=== PATIENT | male | born 1945 | race Caucasian/White ===

== ENCOUNTER 2020-08-20 13:21 | Emergency (ER) | payer MEDICARE ==
[2020-08-20 13:43] VITALS: RESP 18
[2020-08-20] MEDS ORDERED: SODIUM CHLORIDE 0.9% 500 ML 500 ML IV ONE (14:40)
[2020-08-20 15:33] LABS: Basophils # (A) 0.1 k/uL (0-0.2); Basophils % (A) 1 %; Eosinophils # (A) 0.6 k/uL (0-0.7); Eosinophils % (A) 5 %; HCT 46.6 % (39.0-53.0); HGB 15.7 gm/dL (13.0-17.5); Lymphocytes # (A) 2.1 k/uL (1.0-4.8); Lymphocytes % (A) 19 %; MCH 30.4 pg (25.0-35.0); MCHC 33.8 g/dL (31.0-37.0); MCV 89.8 fL (80.0-100.0); Mean Platelet Volume 9.2; Monocytes # (A) 0.7 k/uL (0-1.0); Monocytes % (A) 7 %; Neutrophils % (A) 65 %; Platelet Count 434 k/uL (150-450); RBC 5.18 m/uL (4.30-5.90); RDW 13.7 % (11.5-15.5); WBC 10.8 k/uL (3.8-10.6)
[2020-08-20 15:43] LABS: African American GFR (CKD) >90 (>60 ml/min/1.73 sqM); Anion Gap 10 mmol/L; Blood Urea Nitrogen 17 mg/dL (9-20); Carbon Dioxide 23 mmol/L (22-30); Chloride 105 mmol/L (98-107); Glucose 118 mg/dL (74-99); Potassium 4.7 mmol/L (3.5-5.1); Sodium 138 mmol/L (137-145)
[2020-08-20 15:44] LABS: ALT 18 U/L (4-49); AST 22 U/L (17-59); Albumin 4.4 g/dL (3.5-5.0); Alkaline Phosphatase 91 U/L (38-126); Calcium 9.8 mg/dL (8.4-10.2); Non-African American GFR(CKD) 83 (>60 ml/min/1.73 sqM); Total Protein 7.4 g/dL (6.3-8.2)
[2020-08-20 15:47] LABS: INR 0.9 (<1.2); Partial Thromboplastin Time 26.1 sec (22.0-30.0); Prothrombin Time 9.6 sec (9.0-12.0)
--- NOTE | 2020-08-20 16:44 | CT ---
EXAMINATION TYPE: CT brain wo con DATE OF EXAM: 08/20/2020 COMPARISON: None HISTORY: visual disturbance CT DLP: 1579.4 mGycm Automated exposure control for dose reduction was used. There is cerebral cortical atrophy. There is no mass effect nor midline shift. There is no sign of in tracranial hemorrhage. Calvarium is intact. Skull base is intact. There is mucosal thickening in the ethmoid sinuses. IMPRESSION: Cerebral atrophy. No acute intracranial abnormality. Ethmoid sinusitis.
--- NOTE | 2020-08-20 17:31 | CT ---
EXAMINATION TYPE: CT angio head neck DATE OF EXAM: 08/20/2020 COMPARISON: None HISTORY: visual distubance CT DLP: 1579.4 mGycm Automated exposure control for dose reduction was used. CONTRAST: Performed with IV Contrast, patient injected with 65 mL of Isovue 370. There are 3-D post processed images. There is normal branching pattern of the great vessels on the aortic arch. There is bilateral arteria l flow in the subclavian arteries. There is arterial flow in the left vertebral artery. I see no flow in the right vertebral artery. There is arterial flow in both common carotid arteries. There is evidence of complete occlusion of th e right internal carotid artery at its origin. There is patency of the left internal carotid artery. There is plaque formation at the left carotid artery bifurcation. There is significant plaque formati on right carotid artery bifurcation. I see no carotid dissection. There is arterial flow in the anter ior middle and posterior cerebral arteries. There is arterial flow in the basilar artery which appear s to fill only from the left side. There is some retrograde flow in the right distal vertebral artery . There is no evidence of intracranial aneurysm or neovascularity. The right anterior cerebral artery a nd right middle cerebral artery appear to fill through the anterior communicating artery and the righ t posterior communicating artery. I see no evidence of intracranial arterial stenosis. There is abdullahi l contrast opacification of the venous sinuses. There is mucosal thickening in the ethmoid sinuses. IMPRESSION: Complete occlusion right internal carotid artery at its origin. 

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
[2020-08-20 19:00] VITALS: BP 184/108; PULSE 67; TEMP 97.6
== END 2020-08-20 19:00 | disposition home or self-care (01) ==
LOC: EC 13:21
DX: I65.23 Occlusion and stenosis of bilateral carotid arteries (principal); I65.01 Occlusion and stenosis of right vertebral artery; I10 Essential (primary) hypertension; E11.9 Type 2 diabetes mellitus without complications; E78.5 Hyperlipidemia, unspecified; Z79.4 Long term (current) use of insulin; Z79.899 Other long term (current) drug therapy; Z87.891 Personal history of nicotine dependence
CPT/HCPCS: 36415; 80053; 85025; 85610; 85730; 70496; 70450; 70498; 99284; 96360; Q9967

== ENCOUNTER → 2021-03-19 | Outpatient (CLI) | payer MEDICARE ==
[2021-03-19 11:53] LABS: African American GFR (CKD) >90 (>60 ml/min/1.73 sqM); Blood Urea Nitrogen 22 mg/dL (9-20); Non-African American GFR(CKD) 79 (>60 ml/min/1.73 sqM)
--- NOTE | 2021-03-19 14:25 | CT ---
EXAMINATION TYPE: CT angio neck DATE OF EXAM: 03/19/2021 HISTORY: Carotid stenosis, history of throat cancer. COMPARISON: CTA head neck August 20, 2020 CT DLP: 328.7 mGycm. Automated Exposure Control for Dose Reduction was Utilized. TECHNIQUE: CTA scan of the neck is performed with IV Contrast, patient injected with 65 mL of Isovue 370, axial images are obtained, coronal and sagittal reformatted images are reviewed. . 3D reconstru cted images are created on an independent workstation and reviewed. FINDINGS: Carotid/Vascular Structures: There is bovine type arch redemonstrated. [id number] peripheral pl aque in the left subclavian artery redemonstrated without significant stenosis. Normal origin right c ommon carotid artery from right brachiocephalic artery. Mild to moderate noncalcified plaque in the d istal left common carotid artery along anterior medial aspect redemonstrated. There is bulging at the bifurcation with mild to moderate calcified plaque extending into left internal carotid artery but n o significant stenosis. No significant change from prior. Patent external carotid artery without sign ificant stenosis. There is moderate to severe noncalcified plaque greatest anteriorly in curvilinear fashion mid to dis hany right common carotid artery redemonstrated. There is bulge at the right carotid bulb with complet e occlusion of the right internal carotid artery at its origin redemonstrated. There is near complete occlusion of the right external carotid artery shortly after its origin on current study more promin ent in appearance versus prior. Some intracranial flow at level of [place] is identified. Persistent complete occlusion of the right vertebral artery with some visualization distally likely f rom retrograde flow. Stable patent left vertebral artery filling the basilar artery. Other: Moderate mucosal thickening bilateral maxillary sinuses left greater than right redemonstrated . Moderate mucosal thickening and opacification of bilateral ethmoid sinuses is identified. Subcentimeter left-sided thyroid nodules redemonstrated. Mild to moderate emphysematous change of visualized upper lungs. IMPRESSION: Persistent complete occlusion of the right internal carotid artery. Persistent occluded r ight vertebral artery. Worsening significant stenosis right external carotid artery. No significant s tenosis left common or internal carotid artery.
== END | disposition home or self-care (01) ==
LOC: RADCTMAIN 11:12
PROVIDERS: ATTEND Surgery
DX: I65.21 Occlusion and stenosis of right carotid artery (principal); I65.01 Occlusion and stenosis of right vertebral artery; Z85.29 Personal history of malignant neoplasm of other respiratory and intrathoracic organs
CPT/HCPCS: 82565; 84520; 70498; 36415; Q9967

== ENCOUNTER → 2021-09-07 | Outpatient (CLI) | payer MEDICARE ==
[2021-09-07 11:58] LABS: Potassium 5.4 mmol/L (3.5-5.1)
[2021-09-07 12:42] LABS: Anisocytosis Slight; HCT 41.9 % (39.0-53.0); HGB 13.3 gm/dL (13.0-17.5); Hypochromasia Slight; MCH 24.8 pg (25.0-35.0); MCHC 31.7 g/dL (31.0-37.0); MCV 78.3 fL (80.0-100.0); Mean Platelet Volume 8.5; Microcytosis Slight; Platelet Count 448 k/uL (150-450); RBC 5.35 m/uL (4.30-5.90); RDW 16.6 % (11.5-15.5); WBC 10.7 k/uL (3.8-10.6)
[2021-09-07 14:31] LABS: Basophils # (M) 0.11 k/uL (0-0.2); Eosinophils # (M) 1.07 k/uL (0-0.7); Lymphocytes # (M) 2.68 k/uL (1.0-4.8); Monocytes # (M) 1.28 k/uL (0-1.0); Neutrophils # (M) 5.56 k/uL (1.3-7.7); Neutrophils % (M) 52 %; Nucleated Red Blood Cells 0 /100 WBC (0-0); Total Cells Counted 100
== END | disposition home or self-care (01) ==
LOC: LABPAT 10:50
PROVIDERS: ATTEND Surgery
DX: Z01.812 Encounter for preprocedural laboratory examination (principal); I65.29 Occlusion and stenosis of unspecified carotid artery
CPT/HCPCS: 80051; 82565; 84520; 85025

== ENCOUNTER → 2021-09-10 | Day surgery (SDC) | payer MEDICARE ==
[2021-09-07 09:52] VITALS: BMI 28.6
[~2021-09-10] MED LIST: .fentaNYL (PF) 50 MCG/ML AMP IVP ONE; ASPIRIN 81 MG ONE; IOPAMIDOL-250 100ML BTL INTRAARTER ONE; LIDOCAINE 1% INJ 10MG/ML (20 ML MDV) ONE; LIDOCAINE 1% INJ 10MG/ML (20 ML MDV) SQ ONE; MIDAZOLAM 2 MG/2 ML VIAL IVP ONE; SODIUM CHLORIDE 0.9% 1,000 ML IV ONE
[2021-09-10 06:34] VITALS: RESP 16; TEMP 97.2
[2021-09-10 06:36] LABS: Glucose,Whole Blood 209 mg/dL (75-99)
--- NOTE | 2021-09-10 08:47 | P.OP ---
Date of Procedure: 09/10/21 Description of Procedure: Preoperative diagnosis: [Left Carotid stenosis, discordance between ultrasound and computed tomography scan, right carotid occlusion] Postoperative diagnosis: Same, greater than 80% stenosis of the left internal carotid artery Procedure: [#1 ultrasound-guided right common femoral artery access #2 aortic arch angiogram #3 selective brachiocephalic angiogram #4 selective left common carotid artery angiogram #5 moderate conscious sedation 32 minutes] Surgeon: Amy Dupree D.O. EBL: [Less than 10 mL] IV fluids: [See records] Urine output: [Not measured] Drains: [None] Complications: [None immediately apparent] Condition: [Stable to recovery] Operative indication and findings: [Patient is a 75 old male who has been followed for routine surveillance of his carotid stenosis. He has a known right internal carotid artery lesion. He had increasing velocities with evidence of severe stenosis, 80-99% on ultrasound and was subsequently sent for a computed tomography scan. Computed tomography scan showed no evidence of significant stenosis. At that time it was recommended he undergo a carotid angiogram back in the summer however he was very reluctant to do so and on multiple occasions canceled his visits or did not show for scheduled procedure. He was finally daisy ling to undergo the procedure and was scheduled to go at this time. Risks and benefits were discussed. He seemingly understood and was willing to proceed as such] Procedure in detail: [The patient was taken to the special suite and placed in supine position. The bilateral groins are prepped and draped in usual sterile fashion. A preprocedure timeout was performed, all parties were in agreement. The right common femoral artery was identified and the skin overlying was anesthetized with 1% lidocaine plain. Using ultrasound the artery was accessed on first attempt with pulsatile bright red blood. Seldinger technique was used and a 5-Z[place] sheath was placed. Using catheters and wires a pigtail catheter was then placed up into the aortic arch. An angiogram was performed. Using multiple other catheters the brachiocephalic and subsequently the left common carotid were both accessed with angiograms performed. Catheters and wires were then removed. The sheath was removed and pressure was held until hemostasis was adequate. The patient was transferred to recovery in stable condition having tolerated the procedure well. Angiographic findings There is a partially bovine arch with the left common carotid arising from the brachiocephalic trunk. The right subclavian appears patent without evidence of significant stenosis. The vertebral artery appears patent without significant stenosis. There is no visualization of the common carotid artery were throughout the carotid system on the right. The left common carotid arises from the brachiocephalic trunk. The common carotid artery is patent with no evidence of significant disease. The bulb appears patent. The external appears patent. There is an area of significant stenosis of the internal carotid artery measuring 86%. There is prestenotic dilation. The left subclavian appears patent through its visualized course as well as the vertebral as visualized. The plan will be to evaluate the patient for a trans-carotid artery revascularization and stent placement versus open carotid endarterectomy. Would be helpful for a trans-carotid artery revascularization attempts due to the high lesion and contralateral occlusion] Plan - Discharge Summary Discharge Rx Participant: No New Discharge Prescriptions: No Action ramipriL [Ramipril] 10 mg PO HS Pantoprazole [Protonix] 40 mg PO DAILY PRN PRN Reason: Heartburn metFORMIN HCL [Glucophage] 1,000 mg PO BID Insulin Glargine,Hum.rec.anlog [Lantus Solostar] 18 unit SQ HS Insulin Glargine,Hum.rec.anlog [Lantus Solostar] 8 unit SQ QAM Glimepiride [Amaryl] 4 mg PO BID Atenolol [Tenormin] 50 mg PO DAILY Celecoxib [CeleBREX] 200 mg PO BID PRN PRN Reason: Pain hydroCHLOROthiazide [Hydrodiuril] 25 mg PO DAILY Aspirin [Adult Low Dose Aspirin EC] 81 mg PO DAILY Atorvastatin [Lipitor] 40 mg PO HS Dulaglutide [Trulicity] 1.5 mg SQ WE Multivitamins, Thera [Multivitamin (formulary)] 1 tab PO DAILY Vit C/E/Zn/Coppr/Lutein/Zeaxan [Preservision Areds 2 Softgel] 1 each PO DAILY Discharge Medication List Atenolol [Tenormin] 50 mg PO DAILY 08/20/20 [History] Glimepiride [Amaryl] 4 mg PO BID 08/20/20 [History] Insulin Glargine,Hum.rec.anlog [Lantus Solostar] 8 unit SQ QAM 08/20/20 [History] Insulin Glargine,Hum.rec.anlog [Lantus Solostar] 18 unit SQ HS 08/20/20 [History] Pantoprazole [Protonix] 40 mg PO DAILY PRN 08/20/20 [History] metFORMIN HCL [Glucophage] 1,000 mg PO BID 08/20/20 [History] ramipriL [Ramipril] 10 mg PO HS 08/20/20 [History] Aspirin [Adult Low Dose Aspirin EC] 81 mg PO DAILY 09/07/21 [History] Atorvastatin [Lipitor] 40 mg PO HS 09/07/21 [History] Celecoxib [CeleBREX] 200 mg PO BID PRN 09/07/21 [History] Dulaglutide [Trulicity] 1.5 mg SQ WE 09/07/21 [History] Multivitamins, Thera [Multivitamin (formulary)] 1 tab PO DAILY 09/07/21 [History] Vit C/E/Zn/Coppr/Lutein/Zeaxan [Preservision Areds 2 Softgel] 1 each PO DAILY 09/07/21 [History] hydroCHLOROthiazide [Hydrodiuril] 25 mg PO DAILY 09/07/21 [History] Follow up Appointment(s)/Referral(s): Amy Dupree DO [STAFF PHYSICIAN] - 1 Week Activity/Diet/Wound Care/Special Instructions: No heavy lifting for 48 hours. May resume regular diet and home medications. May resume regular activity otherwise. May shower starting tomorrow. Follow-up in the office. May continue all medications including aspirin and statin Discharge Disposition: HOME SELF-CARE
[2021-09-10 08:52] LABS: Glucose,Whole Blood 158 mg/dL (75-99)
--- NOTE | 2021-09-10 10:08 | IR ---
EXAMINATION TYPE: IR angio aortic arch DATE OF EXAM: 09/10/2021 COMPARISON: NONE HISTORY: Fluoroscopy time. Fluoroscopy was provided to the referring clinician.
[2021-09-10 17:58] VITALS: BP 145/89; PULSE 83
== END | disposition home or self-care (01) ==
LOC: CATHCVL 05:53
PROVIDERS: ATTEND Surgery
DX: I65.22 Occlusion and stenosis of left carotid artery (principal); E11.9 Type 2 diabetes mellitus without complications; Z20.822 Contact with and (suspected) exposure to COVID-19; Z79.899 Other long term (current) drug therapy; Z79.84 Long term (current) use of oral hypoglycemic drugs; Z87.891 Personal history of nicotine dependence; Z85.21 Personal history of malignant neoplasm of larynx
CPT/HCPCS: 76937; 36222; 87635; C1769 ×3; C1894; J2250; J2001; J3010; Q9966

== ENCOUNTER → 2021-10-02 | Outpatient (CLI) | payer MEDICARE ==
[2021-10-02 10:54] LABS: INR 0.9 (<1.2); Prothrombin Time 9.8 sec (9.0-12.0)
[2021-10-02 10:57] LABS: Anisocytosis Slight; Basophils # (A) 0.1 k/uL (0-0.2); Basophils % (A) 1 %; Eosinophils # (A) 0.7 k/uL (0-0.7); Eosinophils % (A) 6 %; HCT 41.6 % (39.0-53.0); HGB 12.6 gm/dL (13.0-17.5); Hypochromasia Marked; Lymphocytes # (A) 2.5 k/uL (1.0-4.8); Lymphocytes % (A) 24 %; MCH 24.2 pg (25.0-35.0); MCHC 30.3 g/dL (31.0-37.0); Mean Platelet Volume 8.4; Monocytes # (A) 0.9 k/uL (0-1.0); Monocytes % (A) 8 %; Neutrophils # (A) 6.1 k/uL (1.3-7.7); Neutrophils % (A) 58 %; Platelet Count 517 k/uL (150-450); RBC 5.21 m/uL (4.30-5.90); RDW 16.2 % (11.5-15.5); WBC 10.6 k/uL (3.8-10.6)
== END | disposition home or self-care (01) ==
LOC: LABPAT 09:15
PROVIDERS: ATTEND Surgery
DX: Z01.812 Encounter for preprocedural laboratory examination (principal); I65.22 Occlusion and stenosis of left carotid artery
CPT/HCPCS: 80051; 82565; 82947; 84520; 85025; 85610; 85730

== ENCOUNTER → 2022-06-24 | Outpatient (CLI) | payer MEDICARE ==
[2022-06-24 14:38] LABS: Basophils # (A) 0.17 X 10*3/uL (0.00-0.10); Basophils % (A) 2.1 %; Eosinophils # (A) 0.71 X 10*3/uL (0.04-0.35); Eosinophils % (A) 8.7 %; HCT 42.6 % (39.6-50.0); HGB 12.6 g/dL (13.0-17.0); Immature Grans, Automated 0.2 %; Lymphocytes # (A) 1.88 X 10*3/uL (0.90-5.00); MCH 24.5 pg (27.0-32.0); MCHC 29.6 g/dL (32.0-37.0); MCV 82.9 fL (80.0-97.0); Mean Platelet Volume 11.5 fL (9.5-12.2); Monocytes # (A) 1.05 X 10*3/uL (0.20-1.00); Monocytes % (A) 12.9 %; NRBC Per 100 WBC 0 /100 WBCS (0.0-0.0); Neutrophils # (A) 4.34 X 10*3/uL (1.80-7.70); Neutrophils % (A) 53.1 %; Platelet Count 478 X 10*3/uL (140-440); RBC 5.14 X 10*6/uL (4.40-5.60); RDW 18.5 % (11.5-14.5); WBC 8.17 X 10*3/uL (4.50-10.00)
[2022-06-25 09:26] LABS: Lyme IgG/IgM 0.41 Index
== END | disposition home or self-care (01) ==
LOC: LABWHC1 09:17
PROVIDERS: ATTEND Otolaryngology
DX: R53.83 Other fatigue (principal)
CPT/HCPCS: 36415; 84443; 85025; 86618

== ENCOUNTER → 2022-07-09 | Outpatient (CLI) | payer MEDICARE ==
[2022-07-09 10:28] LABS: African American GFR (CKD) >90 (>60 ml/min/1.73 sqM); Blood Urea Nitrogen 17 mg/dL (9-20); Non-African American GFR(CKD) 81 (>60 ml/min/1.73 sqM)
--- NOTE | 2022-07-11 10:24 | CT ---
EXAMINATION TYPE: CT neck chest w con DATE OF EXAM: 07/09/2022 11:37 AM COMPARISON: CTA neck March 19, 2021 HISTORY: Lt vocal cord paralysis CT DLP: 1074.7 mGycm Automated exposure control for dose reduction was used. CONTRAST: CT scan of the neck and thorax are performed following with IV Contrast, patient injected with 100 mL of Isovue 300. Axial images are obtained, coronal and sagittal reformatted images are reviewed. FINDINGS: Neck: Airway: Subcentimeter left-sided thyroid nodules are redemonstrated. Parotid/submandibular glands: Symmetric submandibular gland atrophy is redemonstrated. Carotid/Vascular Structures: Completely occluded right internal carotid artery shortly after its orig in is redemonstrated. There is new patent stent graft in the left proximal internal carotid artery. Osseous Structures: Moderate spurring and disc space narrowing C5-C6 and C6-C7 levels is present. Dex troconvex scoliosis in the thoracic spine is redemonstrated. Other: Moderate to severe mucosal thickening inferior maxillary sinuses bilaterally is redemonstrated . Patchy opacification and mucosal thickening of the visualized portion of the bilateral ethmoid sinu ses. No greater than 1 cm neck adenopathy. Thorax: LUNGS: Mild to moderate underlying emphysematous changes are redemonstrated. No suspicious greater th an 5 mm pulmonary nodules or masses. No suspicious focal consolidation. No pleural effusion or pneumo thorax seen bilaterally. MEDIASTINUM: Prominent but subcentimeter lymph nodes scattered throughout the mediastinum including p revascular region and AP window along with paratracheal region and bilateral hilar level and subcarin al region. Cardiomegaly is present. No pericardial effusion is seen. Coronary artery calcification i s present. OTHER: Spleen is small in size with lobulated contour, possible product of remote trauma. Bridging sp urs in the thoracic spine are redemonstrated. IMPRESSION: Emphysematous change without suspicious mass or greater than 1 cm adenopathy to account f or patient's symptoms of left-sided vocal cord paralysis.
== END | disposition home or self-care (01) ==
LOC: RADXRMAIN 09:07
PROVIDERS: ATTEND Otolaryngology
DX: R13.10 Dysphagia, unspecified (principal); R49.0 Dysphonia
CPT/HCPCS: 82565; 84520; 70491; 71260; 36415; Q9967

== ENCOUNTER → 2022-07-22 | Outpatient (CLI) | payer MEDICARE ==
[2022-07-22 15:42] LABS: ALT 16 U/L (10-49); AST 14 U/L (14-35); African American GFR (CKD) 85.6 (60.0-200.0); Albumin 4.7 g/dL (3.8-4.9); Albumin/Globulin Ratio 1.88 (1.60-3.17); Alkaline Phosphatase 92 U/L (41-126); Calcium 9.9 mg/dL (8.7-10.3); Carbon Dioxide 23.8 mmol/L (20.0-27.5); Chloride 102 mmol/L (96-109); Chol/HDL Ratio 3.93 Ratio; Globulin 2.5 g/dL (1.6-3.3); Glucose 170 mg/dL (70-110); LDL Cholesterol,Calculated 66.1 mg/dL (0.0-131.0); Non-African American GFR(CKD) 73.8 (60.0-200.0); Potassium 5.5 mmol/L (3.5-5.5); Sodium 140 mmol/L (135-145); Total Protein 7.2 g/dL (6.2-8.2)
[2022-07-22 19:49] LABS: Urine Creatinine 72.8 mg/dL (39.0-259.0)
== END | disposition home or self-care (01) ==
LOC: LABWHC1 07:58
PROVIDERS: ATTEND Internal Medicine Endocrinology, Diabetes & Metabolism
DX: E11.65 Type 2 diabetes mellitus with hyperglycemia (principal)
CPT/HCPCS: 36415; 80053; 80061; 82043; 82570; 83036; 84443

== ENCOUNTER → 2023-01-21 | Outpatient (CLI) | payer MEDICARE ==
[2023-01-21 12:16] LABS: ALT 17 U/L (10-49); AST 20 U/L (14-35); African American GFR (CKD) 75.7 (60.0-200.0); Albumin 4.5 g/dL (3.8-4.9); Albumin/Globulin Ratio 1.96 (1.60-3.17); Alkaline Phosphatase 96 U/L (41-126); BUN/Creat Ratio 20.09 Ratio (12.00-20.00); Blood Urea Nitrogen 22.1 mg/dL (9.0-27.0); Calcium 9.5 mg/dL (8.7-10.3); Carbon Dioxide 22.6 mmol/L (20.0-27.5); Chloride 105 mmol/L (96-109); Chol/HDL Ratio 3.29 Ratio; Globulin 2.3 g/dL (1.6-3.3); Glucose 192 mg/dL (70-110); LDL Cholesterol,Calculated 58.9 mg/dL (0.0-131.0); Non-African American GFR(CKD) 65.3 (60.0-200.0); Potassium 5.6 mmol/L (3.5-5.5); Sodium 140 mmol/L (135-145); Total Protein 6.8 g/dL (6.2-8.2)
== END | disposition home or self-care (01) ==
LOC: LABWHC1 07:05
PROVIDERS: ATTEND Internal Medicine Endocrinology, Diabetes & Metabolism
DX: E11.65 Type 2 diabetes mellitus with hyperglycemia (principal)
CPT/HCPCS: 36415; 80053; 80061; 82043; 82570; 83036; 84443

== ENCOUNTER → 2023-09-06 | Outpatient (CLI) | payer MEDICARE ==
[2023-09-06 15:55] LABS: Blood Urea Nitrogen 26.4 mg/dL (9.0-27.0); Chloride 98 mmol/L (96-109); Potassium 5.4 mmol/L (3.5-5.5); Sodium 139 mmol/L (135-145)
[2023-09-06 16:02] LABS: HCT 46.5 % (39.6-50.0); HGB 13.5 g/dL (13.0-17.0); MCH 24.2 pg (27.0-32.0); MCV 83.3 FL (80.0-97.0); Mean Platelet Volume 11.3 FL (9.5-12.2); NRBC Per 100 WBC 0 X 10*3/uL (0.00-0.01); Platelet Count 696 X 10*3/uL (140-440); RBC 5.58 X 10*6/uL (4.40-5.60); RDW 17.3 % (11.5-14.5); WBC 10.83 X 10*3/uL (4.50-10.00)
== END | disposition home or self-care (01) ==
LOC: LABPAT 08:02
PROVIDERS: ATTEND Internal Medicine
DX: Z01.812 Encounter for preprocedural laboratory examination (principal); R06.02 Shortness of breath
CPT/HCPCS: 80051; 82565; 84520; 85027

== ENCOUNTER 2023-09-14 09:04 | Day surgery (SDC) | payer MEDICARE ==
[2023-09-09 16:14] VITALS: BMI 28.5
[~2023-09-14 09:04] MED LIST changes: -.fentaNYL (PF) 50 MCG/ML AMP IVP ONE; -ASPIRIN 81 MG ONE; -IOPAMIDOL-250 100ML BTL INTRAARTER ONE; -LIDOCAINE 1% INJ 10MG/ML (20 ML MDV) ONE; -LIDOCAINE 1% INJ 10MG/ML (20 ML MDV) SQ ONE; -MIDAZOLAM 2 MG/2 ML VIAL IVP ONE; -SODIUM CHLORIDE 0.9% 1,000 ML IV ONE; +SODIUM CHLORIDE 0.9% 1,000 ML IV SCH
[2023-09-14] MEDS ORDERED: LACTATED RINGERS 1,000 ML IV ONE (09:50)
[2023-09-14] MEDS ORDERED: LIDOCAINE 1% (10MG/ML) FOR IV START INTRADERMA ONE (09:50)
[2023-09-14 10:21] LABS: Glucose,Whole Blood 197 mg/dL (70-110)
[2023-09-14 10:41] VITALS: TEMP 97.5
[2023-09-14 11:08] LABS: Glucose,Whole Blood 164 mg/dL (70-110)
[2023-09-14] MEDS ORDERED: PROPOFOL 10 MG/ML 20 ML VIAL IV ONE (12:05)
[2023-09-14] MEDS ORDERED: BENZOCAINE SPRAY 1 CAN TOPICAL ONE (12:07)
--- NOTE | 2023-09-14 12:54 | P.TEE ---
Description of Procedure(s): Procedure performed: Transesophageal Echocardiogram with color flow doppler, pulsed wave doppler and continuous wave doppler, synchronized cardioversion Moderate conscious sedation: Moderate conscious sedation was supplied by anesthesia, see separate report. Complications: none Indications: Atrial fibrillation PROCEDURE: After the risks, benefits and alternatives of the above mentioned procedure was explained in detail with the patient, informed consent was obtained. Patient was brought to the lab in a fasting state. Patient was given sedation by anesthesia, see separate report. The throat was sprayed with Hurricane to anesthetize the throat. A lubricated Omni probe was then introduced into the esophagus and stomach and multiple views were obtained. 2D echo with color flow doppler, pulsed wave doppler and continuous wave doppler was utilized. Agitated saline bubbles were injected to assess for any intra-atrial shunt. The probe was then removed. There was no thrombus noted and therefore patient underwent synchronized cardioversion x 1 with 200J with resultant sinus rhythm. Patient tolerated the procedure well. Patient was transferred to the post procedure area in stable and satisfactory condition. FINDINGS: 1. The aortic valve is tricuspid with normal function and mild aortic insufficiency. 2. The mitral valve appears be normal mild mitral regurgitation. 3. Tricuspid valve is normal with trace tricuspid regurgitation. 4. The interatrial septum is intact. No evidence of PFO. 5. Left atrial appendage is free of clot. 6. Left ventricular ejection fraction 55%
[2023-09-14 13:29] VITALS: BP 162/90; PULSE 76; RESP 22
== END 2023-09-14 13:45 | disposition home or self-care (01) ==
LOC: OR 09:04
PROVIDERS: ATTEND Internal Medicine
DX: I08.1 Rheumatic disorders of both mitral and tricuspid valves (principal); I48.0 Paroxysmal atrial fibrillation; E78.5 Hyperlipidemia, unspecified; E11.9 Type 2 diabetes mellitus without complications; I11.0 Hypertensive heart disease with heart failure; I50.9 Heart failure, unspecified; J90 Pleural effusion, not elsewhere classified; Z79.01 Long term (current) use of anticoagulants; Z79.899 Other long term (current) drug therapy; Z79.82 Long term (current) use of aspirin; Z79.84 Long term (current) use of oral hypoglycemic drugs
CPT/HCPCS: 93312; 93320; 93325; 92960; 99152; J2704

== ENCOUNTER → 2024-01-20 | Outpatient (CLI) | payer MEDICARE ==
[2024-01-20 18:08] LABS: Chol/HDL Ratio 3.16 Ratio
[2024-01-20 19:21] LABS: ALT 13 U/L (10-49); AST 23 U/L (14-35); Albumin 4.5 g/dL (3.8-4.9); Albumin/Globulin Ratio 1.55 Ratio (1.60-3.17); Alkaline Phosphatase 122 U/L (41-126); BUN/Creat Ratio 15.54 Ratio (12.00-20.00); Blood Urea Nitrogen 20.2 mg/dL (9.0-27.0); Calcium 9.8 mg/dL (8.7-10.3); Carbon Dioxide 22.1 mmol/L (21.6-31.8); Chloride 103 mmol/L (96-109); Globulin 2.9 g/dL (1.6-3.3); Glucose 186 mg/dL (70-110); Potassium 5.7 mmol/L (3.5-5.5); Sodium 141 mmol/L (135-145); Total Bilirubin 0.8 mg/dL (0.3-1.2); Total Protein 7.4 g/dL (6.2-8.2)
== END | disposition home or self-care (01) ==
LOC: LABWHC1 08:00
PROVIDERS: ATTEND Internal Medicine Endocrinology, Diabetes & Metabolism
DX: E11.65 Type 2 diabetes mellitus with hyperglycemia (principal)
CPT/HCPCS: 36415; 80053; 80061; 82043; 82570; 83036; 84443

== ENCOUNTER → 2024-08-31 | Outpatient (CLI) | payer MEDICARE ==
[2024-08-31 15:39] LABS: ALT 13 U/L (10-49); AST 15 U/L (14-35); Albumin 4.5 g/dL (3.8-4.9); Alkaline Phosphatase 123 U/L (41-126); BUN/Creat Ratio 14.67 Ratio (12.00-20.00); Blood Urea Nitrogen 17.6 mg/dL (9.0-27.0); Calcium 9.9 mg/dL (8.7-10.3); Carbon Dioxide 26.3 mmol/L (21.6-31.8); Chloride 99 mmol/L (96-109); Chol/HDL Ratio 3.37 Ratio; Globulin 2.5 g/dL (1.6-3.3); Glucose 172 mg/dL (70-110); LDL Cholesterol,Calculated 56.7 mg/dL (0.0-131.0); Potassium 5.5 mmol/L (3.5-5.5); Sodium 140 mmol/L (135-145); Total Bilirubin 1.4 mg/dL (0.3-1.2)
== END | disposition home or self-care (01) ==
LOC: LABWHC1 07:56
PROVIDERS: ATTEND Family Medicine
DX: E11.9 Type 2 diabetes mellitus without complications (principal); E29.1 Testicular hypofunction
CPT/HCPCS: 36415; 80053; 80061; 84146; 84402; 84403

== ENCOUNTER → 2025-04-10 | Outpatient (CLI) | payer MEDICARE ==
[2025-04-10 10:50] LABS: Cholesterol 142.00 mg/dL (0.00-200.00); HDL Cholesterol 39.70 mg/dL (40.00-60.00); LDL Cholesterol,Calculated 71.3 mg/dL (0.0-131.0); Triglycerides 155.00 mg/dL (0.00-149.00); VLDL Calculation 31.00 mg/dL (5.00-40.00)
[2025-04-10 11:21] LABS: Anion Gap 12.60 mmol/L (4.00-12.00); BUN/Creat Ratio 19.18 Ratio (12.00-20.00); Blood Urea Nitrogen 21.1 mg/dL (9.0-27.0); Carbon Dioxide 24.4 mmol/L (21.6-31.8); Chloride 103 mmol/L (96-109); Glucose 155 mg/dL (70-110); Potassium 6.1 mmol/L (3.5-5.5); Sodium 140 mmol/L (135-145)
[2025-04-10 11:22] LABS: ALT 13 U/L (10-49); AST 17 U/L (14-35); Albumin 4.1 g/dL (3.8-4.9); Albumin/Globulin Ratio 1.41 Ratio (1.60-3.17); Alkaline Phosphatase 112 U/L (41-126); Calcium 9.4 mg/dL (8.7-10.3); Globulin 2.9 g/dL (1.6-3.3); Total Protein 7.0 g/dL (6.2-8.2)
== END | disposition home or self-care (01) ==
LOC: LABWHC1 06:57
PROVIDERS: ATTEND Internal Medicine
DX: E11.65 Type 2 diabetes mellitus with hyperglycemia (principal)
CPT/HCPCS: 36415; 80053; 80061; 82043; 82570; 83036